=== PATIENT | male | born 1995 | race Caucasian/White ===

== ENCOUNTER 2018-12-21 08:58 | Emergency (ER) | payer BC ==
[~2018-12-21] VITALS: Ht 172.7 cm; Wt 59.0 kg
[2018-12-21] MEDS ORDERED: TRAMADOL HCL50 MG PO (10:44)
== END 2018-12-21 11:10 | disposition home or self-care (01) ==
LOC: ED 08:58
DX: S62.397A Other fracture of fifth metacarpal bone, left hand, initial encounter for closed fracture (principal); W01.198A Fall on same level from slipping, tripping and stumbling with subsequent striking against other object, initial encounter; Y93.89 Activity, other specified; Y92.89 Other specified places as the place of occurrence of the external cause; Y99.8 Other external cause status

== ENCOUNTER → 2018-12-23 | Outpatient (CLI) | payer BC ==
[~2018-12-23] MED LIST: TRAMADOL HCL50 MG PO
== END | disposition home or self-care (01) ==
LOC: ORTHO 12:38
DX: S62.367D Nondisplaced fracture of neck of fifth metacarpal bone, left hand, subsequent encounter for fracture with routine healing (principal); X58.XXXD Exposure to other specified factors, subsequent encounter

== ENCOUNTER → 2019-01-20 | Outpatient (CLI) | payer BC | END | disposition home or self-care (01) | LOC: ORTHO 01:09 | DX: S62.337D Displaced fracture of neck of fifth metacarpal bone, left hand, subsequent encounter for fracture with routine healing (principal); X58.XXXD Exposure to other specified factors, subsequent encounter ==